=== PATIENT | female | born 1995 | race Hispanic/Latino ===

== ENCOUNTER 2022-04-04 05:04 | Emergency (ER) | payer SELFPAY ==
[~2022-04-04] VITALS: Ht 167.6 cm; Wt 64.9 kg
== END 2022-04-04 05:50 | disposition home or self-care (01) ==
LOC: ER 05:25
DX: R11.2 Nausea with vomiting, unspecified (principal); K52.9 Noninfective gastroenteritis and colitis, unspecified; R10.9 Unspecified abdominal pain; Z20.822 Contact with and (suspected) exposure to COVID-19
CPT/HCPCS: 99283; U0002